=== PATIENT | female | born 1980 | race Caucasian/White ===

== ENCOUNTER 2024-02-02 13:23 | Emergency (ER) | payer OTHER, SELFPAY ==
[2024-02-02 13:25] VITALS: BP 134/88; PULSE 79; RESP 15; TEMP 35.7; O2SAT 100; BMI 37.5
--- NOTE | 2024-02-02 13:52 | EDS_ITS ---
HPI History of Present Illness Chief Complaint: Back Informant: patient Narrative Narrative: 43-year-old with a work-related back injury 2 days ago. 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 Denies any numbness, tingling, pain radiating into the lower extremities. No saddle anesthesia. No bowel or bladder dysfunction. No weakness in the legs, no abdominal pain. Hurts more to move. No other injury. PFSH PFSH Medical History no medical history no medical history Home Medications ?Medication ?Instructions ?Recorded ?Last Taken ?Type cyclobenzaprine 10 mg tablet 10 mg PO TID PRN Muscle Spasm #12 02/02/24 Unknown Rx TABLETS hydrocodone-acetaminophen 5-325mg 1 tab PO Q6H PRN PRN Pain 3 days 02/02/24 Unknown Rx 5mg-325mg #10 TABLETS Allergy/AdvReac Type Severity Reaction Status Date / Time diphenhydramine (From Allergy Mild Hives Verified 02/02/24 13:25 Benadryl) Sulfa (Sulfonamide Allergy Mild hives Verified 02/02/24 13:25 Antibiotics) Family History no significant family his Surgical History no surgical history Social History Smoking Status: Never smoker ROS ROS ED Constitutional Constitutional ED: Denies chills or fever(s) Gastrointestinal Gastrointestinal: Denies abdominal pain, constipation, fecal incontinence, naus ea or vomiting Genitourinary Genitourinary ED: Reports other Details: no urinary retention ; Denies abdominal discomfort or urinary incontinence Musculoskeletal Musculoskeletal: Reports as per HPI and back pain; Denies neck pain Integumentary Denies rash or wounds Neurologic Neurologic: Denies headache(s), paresthesias or weakness EXAM Physical Exam Const Vital Signs: 02/02/24 13:25 Temperature 96.3 F L Temperature Source Temporal Pulse Rate 79 Respiratory Rate 15 Blood Pressure 134/88 H Blood Pressure Mean 103 Pulse Ox 100 Oxygen Delivery Method Room Air Positive well nourished and well developed General Appearance ED: well developed and NAD HEENT Negative for trauma or tenderness Eyes PERRL and EOMs intact bilaterally Neck full ROM and supple GI normal to inspection, nondistended, normoactive bowel sounds, soft to palpation and non-tender Back/Spine normal to inspection Lumbar Spine / Lower Back: ROM limited, lumbar spinal tenderness, paraspinal muscle tenderness and straight leg raise negative bilaterally Extremity normal to inspection, full ROM and no pedal edema Neuro oriented x3 and no sensory deficits noted Sensorium / Orientation: alert Motor Exam: strength 5/5 throughout and clonus absent Deep Tendon Reflexes: Rt Patellar (L4): 2+, Lt Patellar (L4): 2+, Rt Ankle (S1): 2+ and Lt Ankle (S1): 2+ Deep Tendon Reflexes Back: Rt Patellar (L4): 2+, Lt Patellar (L4): 2+, Rt Ankle (S1): 2+ and Lt Ankle (S1): 2+ Plantar Reflex: Downgoing: bilateral Psych mental status grossly normal and thought process normal Skin no rashes or lesions noted and no wounds MDM MDM MDM Narrative Medical decision making narrative: Three-view x-ray series of the lumbar spine were obtained given her mechanism to rule out compression fracture, on my interpretation I see no acute fractures. Differential includes muscle strain, ligament sprain, disc rupture although she is having no symptoms of radiculopathy. Given a Caroline and injection of Norflex here and will refer for [facility] follow-up as well as giving her work lifting restrictions. Radiography Diagnostic Testing: Clinical Impression(s) from Imaging Studies Lumbar Spine X-Ray 02/02/24 13:55 IMPRESSION: Straightening of the normal lumbar lordosis. Electronically Signed: Anthony Schwartz MD at 14:19 EST , Discharge Plan Triage Chief Complaint: Back ED Provider: Alvaro Tim Dx/Rx/DC Orders Clinical Impression: Acute lumbosacral myofascial strain Instructions: ED Back Sprain/Strain Prescriptions: New hydrocodone-acetaminophen 5-325 mg tablet 1 tab PO Q6H PRN PRN (Reason: Pain) 3 Days Qty: 10 0RF cyclobenzaprine 10 mg tablet 10 mg PO TID PRN (Reason: Muscle Spasm) Qty: 12 0RF Stand Alone Forms: Work Status Form Primary Care Provider: Care Physician,No Primary Referrals: [facility] [Group of Physicians] - As soon as possible Print Language: Faroese Disposition Disposition: Home, Self Care
--- NOTE | 2024-02-02 13:55 | RAD_ITS ---
STUDY: X-RAY - LUMBAR SPINE REASON FOR EXAM: Female, 43 years old. Low back pain following injury. TECHNIQUE: 2 view(s) of the lumbar spine were obtained. COMPARISON: None FINDINGS: There is straightening of the normal lumbar lordosis. There is no substantial scoliosis. There is a normal alignment of the vertebrae. Normal vertebral bodies and endplates. Normal disc space heights. A filter is seen within the inferior vena cava. A vascular endoluminal stent graft is seen overlying the right hemipelvis. RAD/Lumbar Spine 2 or 3 Views IMPRESSION: Straightening of the normal lumbar lordosis. Electronically Signed: Anthony Schwartz MD at 14:19 EST ,
[2024-02-02] MEDS: HYDROcodone Bitartrate/Apap 5/325 Tablet PO (14:05)
[2024-02-02] MEDS: Orphenadrine 60 MG/2 ML Ampul IM (14:05)
== END 2024-02-02 15:08 | disposition home or self-care (01) ==
PROVIDERS: Emergency Provider Emergency Medicine; Referring Provider Emergency Medicine; Visit Provider Emergency Medicine
DX: S39.012A Strain of muscle, fascia and tendon of lower back, initial encounter (principal); X50.0XXA Overexertion from strenuous movement or load, initial encounter; Y99.0 Civilian activity done for income or pay; Y92.230 Patient room in hospital as the place of occurrence of the external cause
CPT/HCPCS: 72100; 96372; 99282

== ENCOUNTER 2024-02-16 10:19 | Emergency (ER) | payer OTHER, SELFPAY ==
[2024-02-16 10:20] VITALS: BP 117/83; PULSE 80; RESP 16; TEMP 36.1; O2SAT 99; BMI 37.0
--- NOTE | 2024-02-16 10:36 | VDLE_ITS ---
Reason For Study: Left leg pain RIGHT LEFT CFV is partially compressible wiht bright GSV is normal. intraluminal echoes consistent with Chronic CFV is compressible, spontaneous, phasic, DVT. Normal venous flow noted. competent, and demonstrates normal Procedure augmentation. This is a venous duplex using B-mode, color FV is compressible, spontaneous, phasic, flow and spectral Doppler. competent and demonstrates normal Exam performed portable in ED. augmentation. Patient stated history of extensive DVT in POP V is compressible, spontaneous, phasic, right leg. competent and demonstrates normal A preliminary report was called and/or faxed augmentation. to Dr. Longoria. T/P Trunk is compressible. PTV is compressible. LT PerV is compressible. VL/Venous Duplex US, Unilateral Interpretation Summary Deep veins of the left lower extremity are patent and compressible segmentally. There is no evidence of left lower extremity deep vein thrombosis. Valvular competence appears intac t within the proximal deep venous system on the left . The left great saphenous vein appears patent a nd compressible segmentally. Chronic venous changes are noted in the right common femoral vein, which is partially compressible and demonstrates bright intraluminal echogenicity. Ordering Physician: Sukhi Longoria Performed By: Carrie Belcher RVT
[2024-02-16 11:19] VITALS: BP 134/61; PULSE 64; RESP 16; TEMP 36.6; O2SAT 99
--- NOTE | 2024-02-16 11:24 | ED.VIS.LOWEX ---
HPI History of Present Illness HPI Narrative: Patient presents with pain in her left thigh that has been getting worse over the past 2 weeks. Patient states she was given an injection into her left thigh for a muscle relaxant 2 weeks ago. Patient states the pain has been constant. Patient describes it as a cramping pain. Patient states it is localized to the anterolateral aspect of her left thigh. Patient denies any fevers or chills. Patient denies any redness or swelling. Patient [facility] and was referred to the emergency department for possible blood clot. Patient denies any chest pain or shortness of breath. Patient denies any paresthesias or weakness. Chief Complaint: Lower Extremity Injury Informant: patient Onset/Context/Timing Onset: Weeks (2) Context: Gradual Onset Timing: Continuous Quality of Pain: - (Cramping) Location: Anterior lateral aspect of left thigh Worsened by: Nothing Relieved by: Elevation Associated Symptoms Associated Symptoms: Negative for Parasthesia, Weakness or Loss of Funtion PFS PFS Medical History (Updated 02/16/24 @ 11:[address] Sukhi Longoria DO) Pulmonary embolism DVT (deep venous thrombosis) Stroke Home Medications ?Medication ?Instructions ?Recorded ?Last Taken ?Type cyclobenzaprine 10 mg tablet 10 mg PO TID PRN Muscle Spasm #12 02/02/24 Unknown Rx TABLETS hydrocodone-acetaminophen 5-325mg 1 tab PO Q6H PRN PRN Pain 3 days 02/02/24 Unknown Rx 5mg-325mg #10 TABLETS ibuprofen 600 mg tablet 600 mg PO TID #30 tabs 02/06/24 Unknown Rx Allergy/AdvReac Type Severity Reaction Status Date / Time camphor Allergy Intermediate Hives Verified 02/16/24 10:20 diphenhydramine (From Allergy Mild Hives Verified 02/06/24 10:02 Benadryl) Sulfa (Sulfonamide Allergy Mild hives Verified 02/06/24 10:02 Antibiotics) Surgical History (Updated 02/16/24 @ 11:[address] Sukhi Longoria, ) Hx of bilateral breast reduction surgery H/O section History of herniorrhaphy History of hysterectomy Hx of cholecystectomy S/P insertion of IVC (inferior vena caval) filter Social History Smoking Status: Never smoker ROS ROS ED Constitutional Constitutional ED: Denies chills or fever(s) Eyes Eyes: Denies blurry vision or change in vision ENT ENT ED: Denies rhinorrhea or sore throat Cardiovascular Cardiovascular: Denies chest pain or palpitations Respiratory/Chest Respiratory/Chest: Denies cough or dyspnea Gastrointestinal Gastrointestinal: Denies nausea or vomiting Genitourinary Genitourinary ED: Denies dysuria or hematuria Musculoskeletal Musculoskeletal: Denies back pain or neck pain Integumentary Denies abscess or rash Neurologic Neurologic: Denies headache(s) or weakness Allergic/Immunologic Allergic/Immunologic ED: Denies mouth swelling or urticaria EXAM Physical Exam Const Vital Signs: 02/16/24 10:20 Temperature 96.9 F L Temperature Source Temporal Pulse Rate 80 Respiratory Rate 16 Blood Pressure 117/83 H Blood Pressure Mean 94 Pulse Ox 99 Oxygen Delivery Method Room Air Positive well nourished and well developed General Appearance ED: well developed and NAD HEENT Reports moist mucous membranes Neck full ROM and supple Extremity Extremity Narrative: There is mild tenderness over the anterior lateral aspect of the left thigh. There is an area of ecchymosis. There is no erythema or warmth noted. There is no bony crepitance or step-off. There is no deformity noted. There is good range of motion. There is no calf tenderness. Neuro oriented x3, CN's II-XII intact bilaterally, moves all extremities and no sensory deficits noted Sensorium / Orientation: alert Motor Exam: strength 5/5 throughout Psych mental status grossly normal MDM MDM MDM Narrative Medical decision making narrative: Differential diagnosis includes potation, muscle strain, and DVT. Venous duplex of the left lower extremity will be obtained to assess for DVT. Radiography Diagnostic Testing: Venous duplex of the left lower extremity was obtained. There is no evidence of DVT. Treatment and Re-Evaluation Narrative: Patient was advised of her findings. Patient was instructed to ice and elevate the left thigh. Patient was instructed to take Tylenol or ibuprofen as needed for pain. Patient was instructed to follow-up with her primary care physician in 5 to 7 days. Patient understood and was agreeable with the plan. All questions were answered. Discharge Plan Triage Chief Complaint: Lower Extremity Injury ED Provider: Sukhi Longoria Dx/Rx/DC Orders Clinical Impression: Contusion of left thigh, Medication side effect Instructions: ED Contusion, Lower Extremity Prescriptions: No Action ibuprofen 600 mg tablet 600 mg PO TID Qty: 30 0RF hydrocodone-acetaminophen 5-325 mg tablet 1 tab PO Q6H PRN PRN (Reason: Pain) 3 Days Qty: 10 0RF cyclobenzaprine 10 mg tablet 10 mg PO TID PRN (Reason: Muscle Spasm) Qty: 12 0RF Primary Care Provider: Care Physician,No Primary Referrals: Care Physician,No Primary [Primary Care Provider] - Print Language: Kiswahili Disposition Disposition: Home, Self Care
== END 2024-02-16 11:42 | disposition home or self-care (01) ==
PROVIDERS: Emergency Provider Emergency Medicine; Visit Provider Emergency Medicine
DX: S70.12XA Contusion of left thigh, initial encounter (principal); Z90.710 Acquired absence of both cervix and uterus; Z86.711 Personal history of pulmonary embolism; Z86.718 Personal history of other venous thrombosis and embolism; Z86.73 Personal history of transient ischemic attack (TIA), and cerebral infarction without residual deficits; Z90.49 Acquired absence of other specified parts of digestive tract; T50.995A Adverse effect of other drugs, medicaments and biological substances, initial encounter; X58.XXXA Exposure to other specified factors, initial encounter
CPT/HCPCS: 93971; 99282

== ENCOUNTER 2024-03-08 09:30 | Outpatient (RCR) | payer OTHER, SELFPAY ==
--- NOTE | 2024-02-20 09:39 | HP.PTEVAL ---
Patient's Visit Information Visit Information Visit Information: YARELIS PRATT is a 43 year old F referred to Physical Therapy by MYLES Trevizo with a diagnosis of STRAIN OF MUSCLE ,FASCIA AND TENDON OF LOW BACK. Date of Evaluation: 02/20/24 Physical Therapist: Saad Clements, PT, Cert MDT, OCS Visit Plan Frequency: 2-3x /Week Duration: 4 Weeks Plan: PT INTERVENTIONS JUAN EX'S ,DLS ,POSTURAL EX'S ,MANUAL THERAPY AND MODALITIES PRN Subjective Subjective: This 43 y/o female presents to presents to physical therapy with low back pain. Patient injury lumbra Jan 30 ,reaching across bed patient transfer caused immediate pain. Patient symptoms worse 2 days later symmetrical. Patient seen Urgent care Feb 01 ,did x-rays -. Prescribed muscle relaxer and hydrocodone. Pain described ache occasional stabbing. Aggravating sitting , carrying ,lifting ,extended walking ,bending lifting . Alleviating moving around and ice/heat. Coughing /sneezing-. Bowel/bladder-. Denies paresthesia/tingling -. Patient symptoms affects sleeping. Patient is off work. Patient condition affects QOL and function and RTW. Goals RTW. RTD Feb 25. 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 [employer] Pain Bilateral Back: Pain Intensity (Out of 10): 5 Pain Intensity Range: 10 Objective Objective: POSTURE: mild forward posture PALAPTION: tender LS/S1 NEURO: denies paresthesia/tingling ,reflexes L3-4,LL4-L5 ,L5-S- 1 3/3 GAIT: reciprocal pattern FLEXABILITY: hamstrings mod tight MMT: quads/hams 4/5 ,hip flexion 4-/5 ,ankle 5/5 LUMBAR ROM: flexion mod loss ,extension min loss ,side glides min loss Special Tests L/S Slump test left side: Negative L/S Slump test right side: Negative L/S Left Straight Leg Raise: Positive L/S Right Straight Leg Raise: Positive Lumbar Standing: Flexion - Mechanical Response: No effect Lumbar Standing: Flexion - Symptoms During Testing: Increases Lumbar Standing: Flexion - Symptoms After Testing: Worse Lumbar Standing: Extension - Mechanical Response: No effect Lumbar Standing: Extension - Symptoms During Testing: Decreases Lumbar Standing: Right Side Glides - Mechanical Response: No effect Lumbar Standing: Right Side [place] - Symptoms During Testing: No effect Lumbar Standing: Right Side [place] - Symptoms After Testing: No effect Lumbar Standing: Left Side [place] - Mechanical Response: No effect Lumbar Standing: Left Side [place] - Symptoms During Testing: No effect Lumbar Standing: Left Side [place] - Symptoms After Testing: No effect Lumbar Lying: Flexion - Mechanical Response: No effect Lumbar Lying: Flexion - Symptoms During Testing: Increases Lumbar Lying: Flexion - Symptoms After Testing: Worse Lumbar Lying: Extension - Mechanical Response: No effect Lumbar Lying: Extension - Symptoms During Testing: Centralizing Lumbar Lying: Extension - Symptoms After Testing: No better Balance/Special Test Scores Oswestry Low Back Score: 18 Goals Goal 1:: Patient to be I with HEP for back Goal Time Frame: 4-6 Weeks Goal 2:: Patient to demonstrate 70% improvement with less pain and improved function. Goal Time Frame: 4-6 Weeks Goal 3:: Patient to improve back oswestry score by 5 points to improve function. Goal Time Frame: 4-6 Weeks Goal 4:: Patient to improve lumbar ROM for function of recovery job demands Goal Time Frame: 4-6 Weeks Goal 5:: Patient to return to job demands without limitations Goal Time Frame: 4-6 Weeks Rehabilitation Potential Physical Therapy Diagnosis: This patient has lumbar pain with possible derangement with pain worse with flexion ,better extension ,worse with position and motion testing thus benefit from skilled PT Rehabilitation Potential: Good Anticipated Interventions Patient/Client Instruction: Educate patient on: Condition and Plan of Care For the Purpose of:: To decrease pain, To increase ROM, To improve muscle performance and motor function, To increase tolerance to activity/condition/position, To improve ability of physical actions for home/community/work/leisure, To improve health of tissue, To decrease soft tissue restriction, To increase flexibility/ROM, To prevent re-injury and To improve tolerance to ADL's Therapeutic Exercise to Include: Strength training, Postural training, Flexibilty training, Dynamic Lumbar Stabilization and Juan Exercises For the Purpose of:: To decrease pain, To increase ROM, To improve ability to perform ADL's, To increase tolerance to activity/condition/position, To improve ability of physical actions for home/community/work/leisure, To improve health of tissue, To decrease soft tissue restriction, To increase flexibility/ROM and To improve tolerance to ADL's Manual Therapy Techniques to Include: Passive ROM For the Purpose of:: To decrease pain and To increase ROM TENS: Yes IF ES: Yes Cryotherapy (ice pack, ice massage): Yes Thermo therapy (hot pack): Yes Ultrasound (thermal/non thermal): Yes For the Purpose of:: To decrease pain, To increase ROM, To improve muscle performance and motor function, To increase tolerance to activity/condition/position, To improve health of tissue, To decrease soft tissue restriction and To increase flexibility/ROM Text: Thank you for the opportunity to evaluate your patient. For Medicare and Medicare HMO plans, please review the plan of care and approve it. It will need to be FAXED BACK to us at [phone] for Medicare purposes. For Medicare only, by signing this I certify the plan of care. Please let me know if there are questions or concerns regarding this plan of care. Physician Signature: Date:
--- NOTE | 2024-06-26 08:45 | HP.PTDCSUM_ITS ---
Discharge Summary D/C summary: It has been my pleasure to treat YARELIS PRATT referred by MYLES Trevizo, with the diagnosis of STRAIN OF MUSCLE ,FASCIA AND TENDON OF LOW BACK for a total of 5 visit(s). Discharge Date: Please see the following information for a summary of their discharge status. 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 Spent all day on the floor. Trying to do her exercises as much as she can. Heat/ice yesterday and able to limp in here today. Pain Bilateral Back: Pain Intensity (Out of 10): 7 Objective Objective/Function: Pt remained painful t/o the session today. 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 Witten a little better with the SKTC stretch on the Left. the moist heat helped as well at EOS. Goals Goal 1:: Patient to be I with HEP for back Goal 2:: Patient to demonstrate 70% improvement with less pain and improved function. Goal 3:: Patient to improve back oswestry score by 5 points to improve function. Goal 4:: Patient to improve lumbar ROM for function of recovery job demands Goal 5:: Patient to return to job demands without limitations Plan Plan: PT INTERVENTIONS JUAN EX'S ,DLS ,POSTURAL EX'S ,MANUAL THERAPY AND MODALITIES PRN D/C Information d/c sentence: If there are questions or concerns regarding this patient's physical therapy, please feel free to call me at [phone]. Thank you for the referral of this patient. Sincerely, Saad Clements, PT, Cert MDT, OCS Balance/Gait/Functional tests Balance/Special Test Scores Oswestry Low Back Score: 18
== END 2024-03-08 19:00 | disposition home or self-care (01) ==
LOC: PT 09:30
PROVIDERS: Referring Provider Physician Assistant; Visit Provider Physician Assistant
DX: S39.012D Strain of muscle, fascia and tendon of lower back, subsequent encounter (principal)
CPT/HCPCS: 97110; 97161; 97530

== ENCOUNTER → 2024-04-05 | Outpatient (CLI) | payer OTHER, SELFPAY ==
--- NOTE | 2024-04-05 07:23 | MRI_ITS ---
PROCEDURE: Noncontrast MRI of the lumbar spine. REASON FOR EXAM: Low back pain radiating to the left lower extremity. TECHNIQUE: Multiplanar, multisequence MRI images of the lumbar spine were obtained without IV contrast. COMPARISON: None available FINDINGS: The study assumes a presence of 5 lumbar type, [id number] vertebral bodies. The lumbar vertebral bodies are normal in height, alignment, and marrow signal. No acute fracture or focal subluxation in the lumbar spine. No abnormal marrow replacement process. The conus terminates at T12-L1. The included lower spinal cord and lower thoracic intervertebral disc spaces are unremarkable. Included upper sacrum and SI joints are intact. The included retroperitoneal and paraspinal soft tissues show no specific abnormality. L1-2: No focal disc herniation, significant central spinal canal, or neural foraminal narrowing. Mild degenerative facet changes. L2-3: Mild asymmetric right disc bulge, without large focal disc herniation. There is mild narrowing of the right central spinal canal, without significant narrowing of the right lateral recess. Mild bilateral neural foraminal narrowing. Mild degenerative facet changes. L3-4: No focal disc herniation or significant central spinal canal narrowing. Mild left and moderate right neural foraminal narrowing. Mild degenerative facet changes. L4-5: Mild disc bulge flattens the ventral thecal sac, without focal disc herniation or significant central spinal canal narrowing. Mild bilateral neural foraminal narrowing. Mild degenerative facet changes. L5-S1: No focal disc herniation or significant central spinal canal narrowing. Mild right and moderate left neural foraminal narrowing. Mild degenerative facet changes. MRI/Spine Lumbar (Routine) IMPRESSION: No acute bony abnormality of the lumbar spine. Multilevel degenerative disc and facet disease in the lumbar spine. An asymmet roverto right disc bulge at the L2-3 level causing mild right central spinal canal narrowing, without large focal disc herniation or significant narrowing of the lateral recesses. Mild multilevel degenerative facet changes and bilateral neural foraminal narro wing as described level by level above. Reading Location: [facility]
== END | disposition home or self-care (01) ==
LOC: MRI 07:17
PROVIDERS: Referring Provider Physician Assistant; Visit Provider Physician Assistant
DX: S39.012A Strain of muscle, fascia and tendon of lower back, initial encounter (principal); X58.XXXA Exposure to other specified factors, initial encounter
CPT/HCPCS: 72148